=== PATIENT | male | born 1960 | race Caucasian/White ===

== ENCOUNTER 2018-03-04 11:36 | Emergency (ER) | payer BC ==
[2018-03-04 12:16] VITALS: BP 148/83
--- NOTE | 2018-03-04 13:02 | RAD ---
INDICATION: Elbow pain COMPARISON: None TECHNIQUE: AP, lateral, and oblique views were obtained. FINDINGS: There are no acute bony findings. There is no fat-pad displacement. There is prominence of the soft tissues about the olecranon bursa consistent with olecranon bursitis. IMPRESSION: OLECRANON BURSITIS
--- NOTE | 2018-03-04 13:27 | UC ---
Elbow Pain - HPI Summary HPI Summary: Fell off his dump truck yesterday name late morning and landed on the ground striking his left elbow. Developed swelling to the area which is actually improved today. Has some mild discomfort. 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 - Onset/Duration: Days - 1 DAY, Still Present - BUT IMPROVED Severity Initially: Moderate Severity Currently: Mild Pain Intensity: 2 Pain Scale Used: 0-10 Numeric Location Of Pain: Is Discrete @ - LEFT ELBOW Aggravating Factor(s): Other - MINIMAL PAIN LEFT ELBOW WITH PALPATION Alleviating Factor(s): OTC Meds Associated Signs And Symptoms: Positive: Swelling - Allergies/Home Medications Allergies/Adverse Reactions: Allergies Allergy/AdvReac Type Severity Reaction Status Date / Time No Known Allergies Allergy Verified 03/04/18 12:16 Home Medications: Home Medications Aspirin 325 mg PO 03/04/18 [History] DOXYcycline 100MG CAP(*) 100 mg PO DAILY 03/04/18 [History Confirmed 03/04/18] HydroxyUREA CAP* [Hydrea CAP*] 500 mg PO DAILY 03/04/18 [History Confirmed 03/04] Losartan/Hydrochlorothiazide [Losartan-Hctz 100-12.5 mg Tab] 1 tab PO DAILY 05/12 [History Confirmed 03/04/18] Tadalafil [Cialis] 20 mg PO 03/04/18 [History] PMH/Surg Hx/FS Hx/Imm Hx - Additional Past Medical History Additional PMH: POLYCYTHEMIA VERA - Surgical History Surgical History: None - Family History Known Family History: Positive: Hypertension - Social History Alcohol Use: None Substance Use Type: None Smoking Status (MU): Current Some Day Smoker Amount Used/How Often: 1 ppd Review of Systems Constitutional: Negative Respiratory: Negative Cardiovascular: Negative Gastrointestinal: Negative Musculoskeletal: Arthralgia, Edema All Other Systems Reviewed And Are Negative: Yes Physical Exam Triage Information Reviewed: Yes Appearance: Well-Appearing, No Pain Distress, Well-Nourished Vital Signs: Initial Vital Signs Temp 98 F 03/04/18 12:11 Pulse 61 03/04/18 12:11 Resp 16 03/04/18 12:11 BP 148/83 03/04/18 12:11 Pulse Ox 100 03/04/18 12:11 Vital Signs Reviewed: Yes Eyes: Positive: Conjunctiva Clear ENT: Positive: Hearing grossly normal Neck: Positive: Supple Respiratory: Positive: No respiratory distress, No accessory muscle use Cardiovascular: Positive: Pulses Normal Abdomen Description: Positive: Soft Musculoskeletal: Positive: ROM Intact, Edema @ - LEFT ELBOW OLECRANON BURSITIS, Other: - MINIMAL TENDERNESS LEFT ELBOW OLECRANON PROCESS. NO PAIN WITH FULL EXTENSION AT ELBOW Neurological: Positive: Alert Psychological: Positive: Age Appropriate Behavior Skin: Positive: Other - OLD HEALING ABRASIONS LEFT ELBOW.. Negative: rashes Diagnostics - Radiology LEFT ELBOW XRAY Xray Interpretation: Positive (See Comments) - OLECRANON BURSITIS Radiology Interpretation Completed By: Radiologist Elbow Pain Course/Dx - Differential Dx/Diagnosis Provider Diagnoses: LEFT OLECRANON BURSITIS Discharge - Sign-Out/Discharge Documenting (check all that apply): Patient Departure - Discharge Plan Condition: Stable Disposition: HOME Patient Education Materials: Elbow Bursitis (ED) Referrals: Araceil Lewis NP [Primary Care Provider] - Additional Instructions: X-RAY TODAY CONFIRMS OLECRANON BURSITIS. NO FRACTURE OR DISLOCATION. TISHA WRAP FOR COMPRESSION. ELEVATE. OKAY TO USE ICE FOR DISCOMFORT IF NEEDED. TRY TO AVOID RECURRENT INJURY TO THE AREA THIS WILL PROLONG RECOVERY. SEEK FOLLOW- UP IN THE ED IF YOU DEVELOP WORSENING PAIN, REDNESS, INCREASED SWELLING, DECREASED RANGE OF MOTION, FEVER OR ANY OTHER CONCERNING SYMPTOMS. - Billing Disposition and Condition Condition: STABLE Disposition: Home
== END 2018-03-04 13:47 | disposition home or self-care (01) ==
LOC: UCEAST 11:36
DX: M70.22 Olecranon bursitis, left elbow (principal); Y93.9 Activity, unspecified; Z82.49 Family history of ischemic heart disease and other diseases of the circulatory system; Z72.0 Tobacco use
CPT/HCPCS: 99212; G0463